=== PATIENT | female | born 1965 | race Caucasian/White ===

== ENCOUNTER 2017-02-08 11:34 | Emergency (ER) | payer MEDICARE, MEDICAID ==
[~2017-02-08] VITALS: Ht 165.1 cm; Wt 101.8 kg
[~2017-02-08 11:34] MED LIST: 00186-0370-20 IH; ACTOS 15MG TAB15 MG PO; ACTOS30 MG PO; ALBUTEROL0.09 MG/A1 IH; ATARAX 25MG25 MG/TAB PO; ATIVAN 1MG T1 MG/TAB PO; BENADRYL; BENADRYL25 M2 PO; BUDEPRION XL300 MG PO; CLONAZEPAM PO; COLACE 100100 MG/CAP PO; CYMBALTA 30MG30 MG PO; CYMBALTA 60MG60 MG PO; DEPAKOTE ER 50500 MG PO; DESYREL 100MG100 MG PO; DETROL; DIABETA; EFFEXOR-XR150 MG PO; ESKALITH; ESTRADIOL1 MG PO; GLUCOPHAGE850 MG PO; HYDROCODONE/APAP; JANUVIA 100MG100 MG PO; JANUVIA100 MG PO; KLONOPIN 1MG1 MG PO; LANTUS100 U/ML SC; LASIX 20MG TABL20 MG PO; LATUDA40 MG PO; LEVAQUIN 5500 MG/TA1 PO; LITHIUM CARB300 MG PO; LITHIUM CARBON300 MG PO; LYRICA 75MG CAP75 MG PO; LYRICA75 MG PO; MELATONIN3 M1 PO; NORCO 325 MG-51 TAB PO; POTASSIUM CHLO10 ME2 PO; PREDNISONE20 MG PO; PRILOSEC 20MG20 MG PO; PRILOSEC10 MG PO; REMERON30 MG PO; RESTORIL 1515 MG/CAP PO; RESTORIL30 MG PO; RYBIX ODT50 MG PO; SAPHRIS5 MG SL; SEROQUEL XR400 M1 PO; SEROQUEL400 MG PO; SINGULAIR 110 MG/TAB PO; SYNTHROID0.1 MG/TAB PO; SYNTHROID0.175 MG PO; TALWIN; TOPAMAX 100MG100 M1 PO; TRAMADOL; TRAZODONE; TRILEPTAL600 MG PO; TYLENOL 500MG500 MG PO; TYLENOL EXTRA500 M1 PO; ULTRAM 50MG TAB50 MG PO; VENTOLIN0.09 MG IH; WELLBUTRIN SR150 M1 PO; ZANTAC 150150 MG PO; ZITHROMAX 250M250 MG PO; ZITHROMAX Z PA250 MG PO; ZOCOR 20MG20 MG PO; ZOCOR 40MG40 MG PO; ZOCOR40 MG PO; ZYPREXA7.5 MG PO; [UNRECOGNIZED DRUG - REMARK]; nebulizer
[2017-02-08 11:37] VITALS: TEMP 98
[2017-02-08 12:19] LABS: AMPHETAMINE URINE NEGATIVE; BARBITURATES URINE NEGATIVE; BENZODIAZEPINES URINE NEGATIVE; BUPRENORPHINE URINE NEGATIVE; METHADONE URINE NEGATIVE; OPIATES URINE NEGATIVE; OXYCODONE URINE NEGATIVE; PHENCYCLIDINE URINE NEGATIVE; PROPOXYPHENE URINE NEGATIVE; THC CANNABINOIDS URINE NEGATIVE
[2017-02-08 12:42] LABS: ACETAMINOPHEN < 10 ug/mL (10-30); ADJUSTED CALCIUM 9.6 mg/dL (8.4-10.2); ALANINE AMINOTRANSFERASE 39 U/L (9-52); ALBUMIN 4.3 gm/dL (3.5-5.0); ALKALINE PHOSPHATASE 109 U/L (50-136); ANION GAP 11 mmol/L (7-16); BILIRUBIN,TOTAL 0.7 mg/dL (0.0-1.0); BLOOD UREA NITROGEN 17 mg/dL (7-17); CALCIUM 9.8 mg/dL (8.4-10.2); CARBON DIOXIDE 26 mmol/L (22-30); CHLORIDE 100 mmol/L (98-107); CREATININE, serum 0.88 mg/dL (0.52-1.25); GLUCOSE 213 mg/dL (74-106); POTASSIUM 4.5 mmol/L (3.4-5.0); SODIUM 137 mmol/L (137-145); TOTAL PROTEIN 7.9 gm/dL (6.4-8.2)
[2017-02-08] MEDS ORDERED: SYNTHROID 0.10.15 MG PO (13:01)
[2017-02-08 13:08] LABS: BASO # 0.1 (0.0-0.2); BASO % 0.8 % (0.0-2.0); EOS # 0.6 (0.0-0.7); EOS % 4.4 % (0-4.0); GRAN # 7.3 (1.4-6.5); GRAN % 58.3 % (42.2-75.2); HEMATOCRIT 46.9 % (37.0-47.0); HEMOGLOBIN 15.9 g/dl (12.5-16.0); LYMPH # 3.5 (1.2-3.4); MEAN CELL VOLUME 97 fl (80.0-100.0); MEAN CORPUSCULAR HEMOGLOBIN 33 pg (27.0-31.0); MEAN CORPUSCULAR HGB CONC 34 g/dl (33.0-37.0); MEAN PLATELET VOLUME 10.7 fl (7.4-10.4); MONO % 7.8 % (1.7-9.3); PLATELET COUNT 230 K/mm3 (130-400); RED BLOOD COUNT 4.86 M/mm3 (4.10-5.30); REDCELL DISTRIBUTION WIDTH-CV 12.9 % (11.5-14.5); WHITE BLOOD COUNT 12.5 K/mm3 (4.8-10.8)
[2017-02-08] MEDS ORDERED: NOVOLOG 100U100 U/M1 SQ (16:03)
[2017-02-08 20:18] VITALS: BP 113/69; PULSE 93
== END 2017-02-08 20:26 ==
LOC: COL.ER 11:34
PROVIDERS: Family Medicine
DX: F31.9 Bipolar disorder, unspecified (principal); E11.9 Type 2 diabetes mellitus without complications
CPT/HCPCS: J1815

== ENCOUNTER 2018-01-23 16:44 | Emergency (ER) | payer MEDICARE ==
[~2018-01-23] VITALS: Ht 165.1 cm; Wt 97.7 kg
[~2018-01-23 16:44] MED LIST changes: +NOVOLOG 100U100 U/M1 SQ; +SYNTHROID 0.10.15 MG PO
[2018-01-23 16:46] VITALS: BP 149/79; TEMP 98
[2018-01-23] MEDS ORDERED: PERCOCET 325 MG1 TA2 PO (18:53)
[2018-01-23 19:03] VITALS: PULSE 88
== END 2018-01-23 19:03 | disposition home or self-care (01) ==
LOC: COL.ER 16:44
DX: S93.401A Sprain of unspecified ligament of right ankle, initial encounter (principal); E11.9 Type 2 diabetes mellitus without complications; F31.9 Bipolar disorder, unspecified; E03.9 Hypothyroidism, unspecified; F17.210 Nicotine dependence, cigarettes, uncomplicated; Z79.52 Long term (current) use of systemic steroids; Z79.4 Long term (current) use of insulin; X50.0XXA Overexertion from strenuous movement or load, initial encounter; Y92.009 Unspecified place in unspecified non-institutional (private) residence as the place of occurrence of the external cause

== ENCOUNTER 2018-12-09 15:05 | Emergency (ER) | payer MEDICARE, MEDICAID ==
[~2018-12-09] VITALS: Ht 165.1 cm; Wt 100.0 kg
[~2018-12-09 15:05] MED LIST changes: +PERCOCET 325 MG1 TA2 PO
[2018-12-09 15:06] VITALS: TEMP 98.5
[2018-12-09 15:27] LABS: BASO # 0.1 (0.0-0.2); BASO % 0.8 % (0.0-2.0); EOS # 0.5 (0.0-0.7); EOS % 4.3 % (0-4.0); GRAN # 5.5 (1.4-6.5); GRAN % 48.3 % (42.2-75.2); HEMOGLOBIN 16.5 g/dl (12.5-16.0); LYMPH # 4.3 (1.2-3.4); LYMPH % 37.5 % (20.0-51.0); MEAN CELL VOLUME 96 fl (80.0-100.0); MEAN CORPUSCULAR HEMOGLOBIN 32 pg (27.0-31.0); MEAN CORPUSCULAR HGB CONC 33 g/dl (33.0-37.0); MEAN PLATELET VOLUME 9.8 fl (7.4-10.4); MONO # 0.9 (0.1-0.6); MONO % 8.2 % (1.7-9.3); PLATELET COUNT 253 K/mm3 (130-400); RED BLOOD COUNT 5.21 M/mm3 (4.10-5.30); REDCELL DISTRIBUTION WIDTH-CV 12.9 % (11.5-14.5)
[2018-12-09 15:36] LABS: ALANINE AMINOTRANSFERASE 27 U/L (9-52); ALBUMIN 4.1 gm/dL (3.5-5.0); ALKALINE PHOSPHATASE 96 U/L (50-136); ANION GAP 10 mmol/L (7-16); AST,SGOT 37 U/L (15-37); BILIRUBIN,TOTAL 0.5 mg/dL (0.0-1.0); BLOOD UREA NITROGEN 19 mg/dL (7-17); CALCIUM 9.3 mg/dL (8.4-10.2); CARBON DIOXIDE 28 mmol/L (22-30); CHLORIDE 100 mmol/L (98-107); CREATININE, serum 0.85 mg/dL (0.52-1.25); GLUCOSE 89 mg/dL (74-106); POTASSIUM 4.4 mmol/L (3.4-5.0); SODIUM 138 mmol/L (137-145); TOTAL PROTEIN 7.6 gm/dL (6.4-8.2)
[2018-12-09 15:49] LABS: TROPONIN-I < 0.012 ng/mL (0.000-0.035)
[2018-12-09] MEDS ORDERED: ZITHROMAX 250M250 MG PO (16:24)
[2018-12-09 17:03] VITALS: BP 93/62; PULSE 86
== END 2018-12-09 17:06 | disposition home or self-care (01) ==
LOC: COL.ER 15:05
PROVIDERS: Emergency Medicine
DX: J45.901 Unspecified asthma with (acute) exacerbation (principal); J20.9 Acute bronchitis, unspecified; E11.9 Type 2 diabetes mellitus without complications; F31.9 Bipolar disorder, unspecified; Z79.4 Long term (current) use of insulin; Z90.710 Acquired absence of both cervix and uterus; F17.210 Nicotine dependence, cigarettes, uncomplicated

== ENCOUNTER 2019-06-29 19:10 | Emergency (ER) | payer MEDICARE ==
[~2019-06-29] VITALS: Ht 165.1 cm; Wt 100.0 kg
[2019-06-29 19:11] VITALS: TEMP 97.2
[2019-06-29] MEDS ORDERED: BUSPAR10 MG PO (19:32)
[2019-06-29] MEDS ORDERED: NEURONTIN600 MG/TAB PO (19:32)
[2019-06-29] MEDS ORDERED: APRESOLINE 10MG10 MG PO (19:32)
[2019-06-29] MEDS ORDERED: CEPHALEXIN500 M1 PO (19:33)
[2019-06-29 19:47] LABS: BASO # 0.1 (0.0-0.2); BASO % 0.8 % (0.0-2.0); EOS # 0.5 (0.0-0.7); EOS % 5.1 % (0-4.0); GRAN # 4.3 (1.4-6.5); GRAN % 48.3 % (42.2-75.2); HEMATOCRIT 46.1 % (37.0-47.0); HEMOGLOBIN 15.6 g/dl (12.5-16.0); LYMPH # 3.1 (1.2-3.4); LYMPH % 35.4 % (20.0-51.0); MEAN CELL VOLUME 91 fl (80.0-100.0); MEAN CORPUSCULAR HEMOGLOBIN 31 pg (27.0-31.0); MEAN CORPUSCULAR HGB CONC 34 g/dl (33.0-37.0); MEAN PLATELET VOLUME 9.9 fl (7.4-10.4); MONO # 0.8 (0.1-0.6); MONO % 9.3 % (1.7-9.3); PLATELET COUNT 250 K/mm3 (130-400); RED BLOOD COUNT 5.05 M/mm3 (4.10-5.30); REDCELL DISTRIBUTION WIDTH-CV 12.6 % (11.5-14.5)
[2019-06-29 19:59] LABS: ALBUMIN 4.4 gm/dL (3.5-5.0); BILIRUBIN,TOTAL 0.3 mg/dL (0.0-1.0); CREATININE, serum 0.94 (0.52-1.25); POTASSIUM 4.3 mmol/L (3.4-5.0); TOTAL PROTEIN 7.6 gm/dL (6.4-8.2)
[2019-06-29] MEDS ORDERED: ZITHROMAX Z PA250 MG PO ×2 (21:23)
[2019-06-29 21:33] VITALS: BP 148/74; PULSE 89
== END 2019-06-29 21:33 | disposition home or self-care (01) ==
LOC: COL.ER 19:10
PROVIDERS: Family Medicine
DX: E11.65 Type 2 diabetes mellitus with hyperglycemia (principal); E86.0 Dehydration; J44.9 Chronic obstructive pulmonary disease, unspecified; J20.9 Acute bronchitis, unspecified; R11.10 Vomiting, unspecified; F17.210 Nicotine dependence, cigarettes, uncomplicated; F31.9 Bipolar disorder, unspecified; Z79.4 Long term (current) use of insulin
CPT/HCPCS: J1815; J2405; J2930; J7030

== ENCOUNTER 2019-12-05 22:07 | Emergency (ER) | payer MEDICARE ==
[~2019-12-05] VITALS: Ht 165.1 cm; Wt 100.0 kg
[~2019-12-05 22:07] MED LIST changes: +APRESOLINE 10MG10 MG PO; +BUSPAR10 MG PO; +CEPHALEXIN500 M1 PO; +NEURONTIN600 MG/TAB PO
[2019-12-05 22:11] VITALS: BP 131/66; TEMP 98.7
[2019-12-05] MEDS ORDERED: ANORO IH (22:14)
[2019-12-05] MEDS ORDERED: SOLIQUA 100 UNIT3 ML SQ (22:16)
[2019-12-05 22:47] LABS: BASO # 0.1 (0.0-0.2); BASO % 0.9 % (0.0-2.0); EOS # 0.5 (0.0-0.7); EOS % 4.4 % (0-4.0); GRAN % 42.8 % (42.2-75.2); HEMATOCRIT 45.7 % (37.0-47.0); LYMPH # 4.9 (1.2-3.4); LYMPH % 41.8 % (20.0-51.0); MEAN CELL VOLUME 94 fl (80.0-100.0); MEAN CORPUSCULAR HEMOGLOBIN 31 pg (27.0-31.0); MEAN CORPUSCULAR HGB CONC 33 g/dl (33.0-37.0); MEAN PLATELET VOLUME 10.6 fl (7.4-10.4); MONO # 1.1 (0.1-0.6); MONO % 9.2 % (1.7-9.3); PLATELET COUNT 259 K/mm3 (130-400); RED BLOOD COUNT 4.89 M/mm3 (4.10-5.30); REDCELL DISTRIBUTION WIDTH-CV 13.6 % (11.5-14.5)
[2019-12-05 23:01] LABS: ALANINE AMINOTRANSFERASE 32 U/L (9-52); ALBUMIN 4.4 gm/dL (3.5-5.0); ALKALINE PHOSPHATASE 143 U/L (50-136); ANION GAP 12 mmol/L (7-16); AST,SGOT 28 U/L (15-37); BILIRUBIN,TOTAL 0.3 mg/dL (0.0-1.0); BLOOD UREA NITROGEN 23 mg/dL (7-17); C-REACTIVE PROTEIN 0.8 mg/dL (0.0-0.9); CALCIUM 9.7 mg/dL (8.4-10.2); CARBON DIOXIDE 23 mmol/L (22-30); CHLORIDE 101 mmol/L (98-107); CREATININE, serum 0.88 (0.52-1.25); GLUCOSE 363 mg/dL (74-106); POTASSIUM 4.9 mmol/L (3.4-5.0); SODIUM 136 mmol/L (137-145); TOTAL PROTEIN 7.4 gm/dL (6.4-8.2)
[2019-12-05 23:10] LABS: TROPONIN-I < 0.012 ng/mL (0.000-0.035)
[2019-12-06] MEDS ORDERED: DOXYCYCLINE 10100 MG PO (00:33)
[2019-12-06 01:08] VITALS: PULSE 104
== END 2019-12-06 01:08 | disposition home or self-care (01) ==
LOC: COL.ER 22:07
PROVIDERS: Emergency Medicine
DX: R05 Cough (principal); J44.9 Chronic obstructive pulmonary disease, unspecified; E11.9 Type 2 diabetes mellitus without complications; F31.9 Bipolar disorder, unspecified; F17.210 Nicotine dependence, cigarettes, uncomplicated
CPT/HCPCS: J1815

== ENCOUNTER → 2020-01-15 | Outpatient (CLI) | payer MEDICARE ==
[~2020-01-15] MED LIST changes: +ANORO IH; +DOXYCYCLINE 10100 MG PO; +SOLIQUA 100 UNIT3 ML SQ
== END ==
LOC: COL.VAS 10:20
DX: I73.9 Peripheral vascular disease, unspecified (principal)

== ENCOUNTER 2020-08-14 15:59 | Emergency (ER) | payer MEDICARE ==
[~2020-08-14] VITALS: Ht 165.1 cm; Wt 100.0 kg
[2020-08-14 16:05] VITALS: BP 141/119; TEMP 100
[2020-08-14 16:55] LABS: STREP SCREEN POSITIVE
[2020-08-14] MEDS ORDERED: CEPHALEXIN500 M1 PO (16:59)
[2020-08-14] MEDS ORDERED: MAGIC MOUTH PO (17:01)
[2020-08-14 17:12] VITALS: PULSE 115
== END 2020-08-14 17:23 | disposition home or self-care (01) ==
LOC: COL.ER 15:59
PROVIDERS: Nurse Practitioner Primary Care
DX: J02.0 Streptococcal pharyngitis (principal); F17.210 Nicotine dependence, cigarettes, uncomplicated; J44.9 Chronic obstructive pulmonary disease, unspecified; E03.9 Hypothyroidism, unspecified; E11.9 Type 2 diabetes mellitus without complications; F31.9 Bipolar disorder, unspecified; Z88.2 Allergy status to sulfonamides; Z88.0 Allergy status to penicillin; Z88.8 Allergy status to other drugs, medicaments and biological substances; Z88.6 Allergy status to analgesic agent; Z79.4 Long term (current) use of insulin

== ENCOUNTER 2020-11-30 12:51 | Emergency (ER) | payer MEDICARE, OTHER ==
[~2020-11-30] VITALS: Ht 165.1 cm; Wt 90.9 kg
[~2020-11-30 12:51] MED LIST changes: +MAGIC MOUTH PO
[2020-11-30 12:52] VITALS: BP 131/75; TEMP 98.2
[2020-11-30 13:52] VITALS: PULSE 100
== END 2020-11-30 13:52 | disposition home or self-care (01) ==
LOC: COL.ER 12:51
DX: T17.920A Food in respiratory tract, part unspecified causing asphyxiation, initial encounter (principal); J44.9 Chronic obstructive pulmonary disease, unspecified; E11.9 Type 2 diabetes mellitus without complications; F41.9 Anxiety disorder, unspecified; F17.210 Nicotine dependence, cigarettes, uncomplicated; Z88.0 Allergy status to penicillin; Z88.1 Allergy status to other antibiotic agents; Z88.2 Allergy status to sulfonamides; Z88.6 Allergy status to analgesic agent; Z88.8 Allergy status to other drugs, medicaments and biological substances; Z79.4 Long term (current) use of insulin; Z79.51 Long term (current) use of inhaled steroids; X58.XXXA Exposure to other specified factors, initial encounter

== ENCOUNTER → 2021-03-27 | Outpatient (CLI) | payer MEDICARE, MEDICAID ==
[~2021-03-27] VITALS: Ht 165.1 cm; Wt 100.4 kg
[~2021-03-27] MED LIST changes: +ALBUTEROL1.25 MG/3 IH; +DESYREL 50MG50 MG PO; +FLOVENT 110MCG7.9 GM IH; +GLUCOPHAGE850 MG/TAB PO; +LANTUS100 U/ML SQ; +LIPITOR20 MG PO; +TRICOR145 MG PO; +TRULICITY4.5 MG/0.5 SQ
[2021-03-27 09:19] VITALS: BP 125/84; PULSE 96
[2021-03-27 10:38] VITALS: BP 141/91; PULSE 93
== END ==
LOC: COL.RAD 08:30
DX: M51.36 Other intervertebral disc degeneration, lumbar region (principal)
CPT/HCPCS: J3301